=== PATIENT | male | born 1985 | race Two or more races ===

== ENCOUNTER 2017-09-04 15:58 | Emergency (ER) | payer OTHER ==
[~2017-09-04] VITALS: Ht 172.7 cm; Wt 86.2 kg
[2017-09-04 16:19] VITALS: BP 138/88
[2017-09-04] MEDS ORDERED: oxyCODONE HCL/Acetaminophen 5/325mg ORAL ONE (16:30)
[2017-09-04] MEDS ORDERED: Morphine Sulfate 4mg/ml Inj IM ONE (18:30)
[2017-09-04 19:38] LABS: BASOPHILS % (AUTO) 0.7 % (0.0-2.0); EOSINOPHILS % (AUTO) 1.1 % (0.0-3.0); HEMATOCRIT 52.8 % (42.0-52.0); LYMPHOCYTES % (AUTO) 17.2 % (20.0-45.0); MEAN CORPUSCULAR VOLUME 89 FL (80-99); MONOCYTES % (AUTO) 5.8 % (1.0-10.0); NEUTROPHILS % (AUTO) 75.2 % (45.0-75.0); PLATELET COUNT 344 K/UL (150-450); RED BLOOD COUNT 5.91 M/UL (4.70-6.10); RED CELL DISTRIBUTION WIDTH 10.7 % (11.6-14.8); WHITE BLOOD COUNT 15.9 K/UL (4.8-10.8)
[2017-09-04 19:59] LABS: HEMOGLOBIN 18.7 G/DL (14.2-18.0)
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
[2017-09-04 20:35] LABS: ALANINE AMINOTRANSFERASE 33 U/L (12-78); ALBUMIN 4.3 G/DL (3.4-5.0); ALBUMIN/GLOBULIN RATIO 1.1 (1.0-2.7); ALKALINE PHOSPHATASE 79 U/L (46-116); ANION GAP 7 mmol/L (5-15); ASPARTATE AMINO TRANSFERASE 22 U/L (15-37); BILIRUBIN,TOTAL 1.3 MG/DL (0.2-1.0); BLOOD UREA NITROGEN 15 mg/dL (7-18); CALCIUM 9.7 MG/DL (8.5-10.1); CARBON DIOXIDE 27 MMOL/L (21-32); CHLORIDE 102 MMOL/L (98-107); CREATINE KINASE 257 U/L (26-308); CREATININE 0.9 MG/DL (0.55-1.30); POTASSIUM 3.9 MMOL/L (3.5-5.1); SODIUM 136 MMOL/L (136-145)
[2017-09-04 20:37] LABS: BILIRUBIN,DIRECT 0.2 MG/DL (0.0-0.3)
[2017-09-04] MEDS ORDERED: Morphine Sulfate 4mg/ml Inj IVP ONE (22:00)
[2017-09-04 22:10] VITALS: BP 126/77
[2017-09-04 23:09] VITALS: BP 126/77
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
--- NOTE | 2017-09-05 09:26 | Diagnostic Imaging Report ---
Clinical Indication: Chest pain Technique: IV administration nonionic contrast. Spiral acquisition obtained through the chest. Multiplanar reconstructions generated. Total dose length product 776.1 mGycm. CTDIvol(s) 17.31 mGy. Dose reduction achieved using automated exposure control Comparison: Noncontrast CT performed 2 hours earlier Findings: Again demonstrated is a mid sternal body fracture, with one half bone width anterior displacement. Small substernal hematoma/contusion is noted. No active contrast extravasation is visualized. There is again demonstrated is slight irregularity of the sternomanubrial joint with vacuum formation. The remaining bones are unremarkable. The aorta is intact. No evidence of mediastinal hematoma or contrast extravasation. The lungs are clear, no infiltrates, masses, contusion, pneumothorax, or pleural fluid demonstrated. The heart size is normal. No pericardial effusion. Visualized portions of the thyroid are unremarkable. No mediastinal or hilar mass or adenopathy demonstrated. No axillary or chest wall mass or adenopathy. The included upper abdominal anatomy is somewhat obscured by respiratory motion artifact, is otherwise unremarkable Impression: Mid sternal body fracture again demonstrated, with small retrosternal contusion which is stable over 2 hours. No active contrast extravasation is demonstrated Grossly unremarkable aorta Mild irregularity of the sternomanubrial joint, developmental versus subtle fracture This agrees with the preliminary interpretation provided overnight by [facility]. The CT scanner at [facility] is accredited by the [employer] and the scans are performed using protocols designed to limit radiation exposure to as low as reasonably achievable to attain images of sufficient resolution adequate for diagnostic evaluation.
--- NOTE | 2017-09-05 15:17 | Cardiology Report ---
APPROVED REPORT EKG Measurement Heart [id number] Normal sinus rhythm with sinus arrhythmia Normal ECG
== END 2017-09-04 23:09 | disposition short-term general hospital (02) ==
LOC: EMR 16:20
DX: S22.22XA Fracture of body of sternum, initial encounter for closed fracture (principal); V43.52XA Car driver injured in collision with other type car in traffic accident, initial encounter; Y92.410 Unspecified street and highway as the place of occurrence of the external cause
CPT/HCPCS: 36415; 71045; 71120; 71250; 71260; 80053; 82248; 82550; 84484; 85025; 93005; 96372; 96374; 99284; J2270; Q9967